=== PATIENT | male | born 1960 | race Caucasian/White ===

== ENCOUNTER 2019-11-22 14:54 | Emergency (ER) | payer OTHER ==
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
[2019-11-22 16:17] LABS: HEMATOCRIT 45.3 % (37.9-51.0); HEMOGLOBIN 16.1 g/dL (13.5-17.0); MEAN CORPUSCULAR HEMOGLOBIN 31.2 pg (27.0-33.4); MEAN CORPUSCULAR HGB CONC 35.6 g/dL (32.0-36.0); MEAN CORPUSCULAR VOLUME 88 fl (80-97); PLATELET COUNT 413 10^3/uL (150-450); RED BLOOD COUNT 5.18 10^6/uL (4.35-5.55); WHITE BLOOD COUNT 20.3 10^3/uL (4.0-10.5)
[2019-11-22 16:32] LABS: ALBUMIN 4.7 g/dL (3.5-5.0); ALKALINE PHOSPHATASE 97 U/L (38-126); ANION GAP 14 (5-19); ASPARTATE AMINO TRANSFERASE 25 U/L (17-59); BILIRUBIN,DIRECT 0.3 mg/dL (0.0-0.4); BILIRUBIN,TOTAL 0.8 mg/dL (0.2-1.3); BLOOD UREA NITROGEN 27 mg/dL (7-20); CALCIUM 9.7 mg/dL (8.4-10.2); CARBON DIOXIDE 23 mmol/L (22-30); CHLORIDE 101 mmol/L (98-107); GLUCOSE 191 mg/dL (75-110)
[2019-11-22 16:36] LABS: ABSOLUTE LYMPHOCYTES# (MANUAL) 3.9 10^3/uL (0.5-4.7); ABSOLUTE MONOCYTES # (MANUAL) 1.2 10^3/uL (0.1-1.4); BASOPHILS % (MANUAL) 1 % (0-2); EOSINOPHILS % (MANUAL) 1 % (0-6); LYMPHOCYTES % (MANUAL) 19 % (13-45); MONOCYTES % (MANUAL) 6 % (3-13); SEGMENTED NEUTROPHILS % (MAN) 73 % (42-78); TOTAL CELLS COUNTED 100
[2019-11-22 16:37] LABS: ANISOCYTOSIS SLIGHT; PLATELET COMMENT ADEQUATE
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
[2019-11-22] MEDS ORDERED: NORMAL SALINE 1000 ML 1,000 ML IV ONE (17:28)
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
[2019-11-22] MEDS ORDERED: HYDROMORPHONE HCL INJ/PF 2 MG/ML AMPULE IV ONE (18:06)
[2019-11-22 18:25] VITALS: BP 110/73
--- NOTE | 2019-11-23 16:28 | EKG REPORT ---
SEVERITY:- NORMAL ECG - SINUS RHYTHM : Confirmed by: Oleg Martin 23-Nov-2019 16:28:03
== END 2019-11-22 18:48 ==
LOC: ER 14:54
DX: S27.0XXA Traumatic pneumothorax, initial encounter (principal); T79.7XXA Traumatic subcutaneous emphysema, initial encounter; S30.811A Abrasion of abdominal wall, initial encounter; S31.109A Unspecified open wound of abdominal wall, unspecified quadrant without penetration into peritoneal cavity, initial encounter; R07.9 Chest pain, unspecified; R10.9 Unspecified abdominal pain; V89.2XXA Person injured in unspecified motor-vehicle accident, traffic, initial encounter; I10 Essential (primary) hypertension; E11.9 Type 2 diabetes mellitus without complications; Z23 Encounter for immunization
CPT/HCPCS: 93005; 99285; 96361; 96374; 36415; 83690; 85025; 80053; 84484; 71046; 70450; 71260; 72125; 74177; 93010; J1170; J7030